=== PATIENT | male | born 1950 | race Caucasian/White ===

== ENCOUNTER 2018-01-26 11:34 | Emergency (ER) | payer MEDICARE, BC ==
[2018-01-26 11:46] VITALS: RESP 18
[2018-01-26] MEDS ORDERED: valACYclovir 500 MG TAB PO STA (12:21)
[2018-01-26] MEDS ORDERED: DEXAMETHASONE 4 MG TAB PO STA (12:21)
--- NOTE | 2018-01-26 12:26 | ED ---
General Adult HPI - General Chief complaint: Neuro Symptoms/Deficit Stated complaint: rt side facial droop, sinus Source: patient, RN notes reviewed, old records reviewed Mode of arrival: wheelchair Limitations: no limitations - History of Present Illness Initial comments: This is a 67-year-old male to the ER for evaluation. This male presents for evaluation regards to facial droop. Patient has history of high blood pressure. No history of stroke. No history of weakness otherwise, no leg or arm weakness. Patient does have right-sided facial numbness and inability to move or paralysis for 3 days now. Patient has no other change in symptoms - Related Data Home Medications Medication Instructions Recorded Confirmed Aspirin 81 mg PO DAILY 01/26/18 01/26/18 Folic Acid 1 mg PO DAILY 01/26/18 01/26/18 Montelukast [Singulair] 10 mg PO DAILY 01/26/18 01/26/18 Zoloft (Unknown Dose) 1 tab PO DAILY 01/26/18 01/26/18 metFORMIN HCL 1,000 mg PO BID 01/26/18 01/26/18 Previous Rx's Medication Instructions Recorded predniSONE 80 mg PO DAILY #28 tab 01/26/18 valACYclovir HCL [Valtrex] 1,000 mg PO Q12HR #14 tab 01/26/18 Allergies Allergy/AdvReac Type Severity Reaction Status Date / Time No Known Allergies Allergy Verified 01/26/18 12:26 Review of Systems ROS Statement: Those systems with pertinent positive or pertinent negative responses have been documented in the HPI. ROS Other: All systems not noted in ROS Statement are negative. Past Medical History Past Medical History: Diabetes Mellitus Additional Past Medical History / Comment(s): serocytosis History of Any Multi-Drug Resistant Organisms: None Reported Past Surgical History: Cholecystectomy, Joint Replacement Additional Past Surgical History / Comment(s): sinus surgery, hemrrhoid repair Past Psychological History: No Psychological Hx Reported Smoking Status: Former smoker Past Alcohol Use History: None Reported Past Drug Use History: None Reported General Exam - General Exam Comments Initial Comments: R side facial droop, unable to close R eye, unable to raise R eyebrow Limitations: no limitations General appearance: alert, in no apparent distress Head exam: Present: atraumatic, normocephalic, normal inspection Eye exam: Present: normal appearance, PERRL, EOMI. Absent: scleral icterus, conjunctival injection, periorbital swelling ENT exam: Present: normal exam, mucous membranes moist Neck exam: Present: normal inspection. Absent: tenderness, meningismus, lymphadenopathy Respiratory exam: Present: normal lung sounds bilaterally. Absent: respiratory distress, wheezes, rales, rhonchi, stridor Cardiovascular Exam: Present: regular rate, normal rhythm, normal heart sounds. Absent: systolic murmur, diastolic murmur, rubs, gallop, clicks GI/Abdominal exam: Present: soft, normal bowel sounds. Absent: distended, tenderness, guarding, rebound, rigid Extremities exam: Present: normal inspection, full ROM, normal capillary refill. Absent: tenderness, pedal edema, joint swelling, calf tenderness Back exam: Present: normal inspection Neurological exam: Present: alert, oriented X3, CN II-XII intact Psychiatric exam: Present: normal affect, normal mood Skin exam: Present: warm, dry, intact, normal color. Absent: rash Course Vital Signs 01/26/18 11:40 Temperature 97.9 F Pulse Rate 77 Respiratory 18 Rate Blood Pressure 150/66 O2 Sat by Pulse 100 Oximetry - Reevaluation(s) Reevaluation #1: 01/26/18 12:37 Patient is discussed at length regarding Merida's palsy. Patient aware, will follow-up with family doctor this week Medical Decision Making - Medical Decision Making 67 male the ER for evaluation of right-sided facial droop, 3 days in duration. 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 Patient will be started on appropriate treatment steroids and antivirals and discharged home Disposition Clinical Impression: Merida's palsy Disposition: HOME SELF-CARE Condition: Good Instructions: Merida Palsy (ED) Prescriptions: predniSONE 80 mg PO DAILY #28 tab valACYclovir HCL [Valtrex] 1,000 mg PO Q12HR #14 tab Referrals: Arsalan Pride MD [Primary Care Provider] - 1-2 days
[2018-01-26 13:00] VITALS: BP 143/69; PULSE 80; TEMP 98.1
== END 2018-01-26 12:59 | disposition home or self-care (01) ==
LOC: EC 11:34
DX: G51.0 Bell's palsy (principal); E11.9 Type 2 diabetes mellitus without complications; D58.0 Hereditary spherocytosis; Z87.891 Personal history of nicotine dependence; Z79.82 Long term (current) use of aspirin; Z79.84 Long term (current) use of oral hypoglycemic drugs; Z79.899 Other long term (current) drug therapy
CPT/HCPCS: 99284; J8540

== ENCOUNTER 2018-08-27 10:24 | Day surgery (SDC) | payer MEDICARE, BC ==
[2018-08-24 08:39] VITALS: BMI 32.1
[~2018-08-27 10:24] MED LIST: LACTATED RINGERS 1,000 ML IV SCH
[2018-08-27 10:45] VITALS: TEMP 98.3
[2018-08-27] MEDS ORDERED: LIDOCAINE 1% 20 ML VIAL (10MG/ML) FOR IV START INTRADERMA ONE (10:59)
[2018-08-27 11:00] LABS: Glucose,Whole Blood 96 mg/dL (75-99)
[2018-08-27] MEDS ORDERED: fentaNYL (PF) 50 MCG/ML 2 ML AMP ONE (11:50)
[2018-08-27] MEDS ORDERED: PROPOFOL 10 MG/ML 20 ML VIAL IV ONE (11:50)
[2018-08-27] MEDS ORDERED: LIDOCAINE 1% INJ 10MG/ML (20 ML MDV) ONE (11:50)
[2018-08-27 12:32] VITALS: RESP 18
--- NOTE | 2018-08-27 12:39 | P.PCN ---
Date of Procedure: 08/27/18 Procedure(s) Performed: Procedures: 1. Esophagogastroduodenoscopy and biopsy. 2. Colonoscopy and biopsy. Preoperative diagnosis: Nausea, early satiety and weight loss and history of diarrhea and polyps. Postoperative diagnosis: 1. 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 2. Mild gastritis. 3. Normal colon. 4. Biopsies obtained from the duodenum, antrum, esophagus both proximal and distal to the GE junction and right colon. Preparation: HalfLytely prep. Sedation: Was provided by anesthesia. Brief clinical history: The patient is a 67-year-old male who is scheduled for this evaluation for the above reasons. The patient had multiple colonoscopies in the past because of history of polyps. Last was around 5 years ago. For the last couple months, he has been having diarrhea and urgent bowel movements in addition to nausea and early satiety and he may have lost 10-15 pounds. No bleeding. Procedure: With the patient on his left lateral decubitus position and after informed consent and adequate sedation, I passed the Olympus-GIF 160 video upper endoscope through the cricopharyngeus down the esophagus. GE junction was around 34 cm from the incisors and the tubular esophagus continued for another 4 cm then there was a sliding hiatal hernia measuring 2-3 cm. The esophagus proximal and distal to the GE junction showed no erosions, ulcers, tumors or strictures. Then the endoscope was passed to the rest of the stomach which was insufflated with air and inspected in detail including the retroflex view in the cardia. There was some mottling and erythema in the antrum but no ulcers or erosions. Pyloric channel, duodenal bulb, post bulbar area and descending duodenum appeared healthy. I obtained biopsies from the duodenum, antrum, esophagus distal and proximal to the GE junction then the endoscope was withdrawn and I proceeded with the colonoscopy. Perianal area did not show any fissures or fistulas. There was some degree of rectal prolapse. There were no masses felt on digital rectal examination. The Olympus CFQ Q160L video colonoscope was then inserted in the rectum in the usual fashion and advanced to the cecum. The mucosa appeared healthy. There were no significant polyps or any obvious diverticular disease. I obtained biopsies from the right colon then the endoscope was withdrawn. The patient tolerated the procedure well. Plan: The patient was reassured. Will await biopsy results and make further plans. For his colon cancer screening, I recommended repeat colonoscopy in 5 years. He will follow up with you as planned.
[2018-08-27 12:46] VITALS: BP 127/71; PULSE 78
== END 2018-08-27 13:02 | disposition home or self-care (01) ==
LOC: ORWHC2ENDO 10:24
DX: K29.50 Unspecified chronic gastritis without bleeding (principal); K44.9 Diaphragmatic hernia without obstruction or gangrene; K22.70 Barrett's esophagus without dysplasia; K20.9 Esophagitis, unspecified; R19.7 Diarrhea, unspecified; Z86.010 Personal history of colon polyps; E11.9 Type 2 diabetes mellitus without complications; F32.9 Major depressive disorder, single episode, unspecified; G47.33 Obstructive sleep apnea (adult) (pediatric); Z99.89 Dependence on other enabling machines and devices; Z79.4 Long term (current) use of insulin; Z79.899 Other long term (current) drug therapy
CPT/HCPCS: 88305; 45380; 43239; J2001; J3010; J2704

== ENCOUNTER 2019-11-30 09:51 | Emergency (ER) | payer MEDICARE ==
[2019-11-30 10:09] VITALS: TEMP 97.9
[2019-11-30 10:20] LABS: Glucose,Whole Blood 71 mg/dL (75-99)
--- NOTE | 2019-11-30 10:27 | ED ---
Extremity Problem HPI - General Source: patient, RN notes reviewed, old records reviewed Mode of arrival: ambulatory Limitations: no limitations <Tessy Loving - Last Filed: 11/30/19 14:00> <Yahir Winslow - Last Filed: 11/30/19 14:12> - General Chief complaint: Extremity Problem,Nontraumatic Stated complaint: Left leg pain Time Seen by Provider: 11/30/19 10:15 - History of Present Illness Initial comments: 60-year-old male presents today for evaluation for left lower extremity pain. Patient reports she's noticed some redness and swelling near his medial left knee, and reports some pain radiating down the tibia into the great toe. Patient reports that he has had no history of blood clots. Does have a history of spherocytosis. He states that he is a diabetic as well. Patient reports that after taking his medications today and upon driving to the emergency department had an episode of cold sweats, and was slightly out of that but now he feels well. Denies any chest pain or shortness of breath or headache. He does state that he believes that his blood sugar may have dropped. Upon arrival patient's blood glucose is 70. Was given apple juice. Patient states that he does have an ulceration on his left great toe. He states that occasionally will open and bleed and history feet. Does have a history of neuropathy as well. (Tessy Loving) - Related Data Home Medications Medication Instructions Recorded Confirmed Aspirin 81 mg PO DAILY 01/26/18 08/27/18 Folic Acid 1 mg PO DAILY 01/26/18 08/27/18 Montelukast [Singulair] 10 mg PO DAILY 01/26/18 08/27/18 metFORMIN HCL 1,000 mg PO BID 01/26/18 08/27/18 Exenatide Microspheres [Bydureon 2 mg SQ Q7D 08/24/18 08/27/18 Pen] Insulin Glargine [Lantus] 26 unit SQ BID 08/24/18 08/27/18 Sertraline [Zoloft] 50 mg PO DAILY 08/24/18 08/27/18 Previous Rx's Medication Instructions Recorded Cephalexin [Keflex] 500 mg PO Q6H #40 cap 11/30/19 Sulfamethox-Tmp 800-160Mg [Bactrim 1 tab PO Q12HR #40 tab 11/30/19 DS 800-160 mg] Allergies Allergy/AdvReac Type Severity Reaction Status Date / Time No Known Allergies Allergy Verified 08/27/18 10:35 Review of Systems ROS Other: All systems not noted in ROS Statement are negative. <Tessy Loving - Last Filed: 11/30/19 14:00> ROS Other: All systems not noted in ROS Statement are negative. <Yahir Winslow Bryan - Last Filed: 11/30/19 14:12> ROS Statement: Those systems with pertinent positive or pertinent negative responses have been documented in the HPI. Past Medical History Past Medical History: Diabetes Mellitus Additional Past Medical History / Comment(s): spherocytosis History of Any Multi-Drug Resistant Organisms: None Reported Past Surgical History: Cholecystectomy, Joint Replacement Additional Past Surgical History / Comment(s): sinus surgery, hemrrhoid repair; Efrain. knees replaced; colonoscopy Past Anesthesia/Blood Transfusion Reactions: No Reported Reaction Past Psychological History: Depression Smoking Status: Former smoker Past Alcohol Use History: None Reported Past Drug Use History: None Reported - Past Family History Mother Family Medical History: No Reported History <Tessy Loving - Last Filed: 11/30/19 14:00> General Exam Limitations: no limitations General appearance: alert, in no apparent distress Head exam: Present: atraumatic, normocephalic, normal inspection Eye exam: Present: normal appearance, PERRL, EOMI. Absent: scleral icterus, conjunctival injection, periorbital swelling ENT exam: Present: normal exam, mucous membranes moist Neck exam: Present: normal inspection. Absent: tenderness, meningismus, lymphadenopathy Respiratory exam: Present: normal lung sounds bilaterally. Absent: respiratory distress, wheezes, rales, rhonchi, stridor Cardiovascular Exam: Present: regular rate, normal rhythm, normal heart sounds. Absent: systolic murmur, diastolic murmur, rubs, gallop, clicks GI/Abdominal exam: Present: soft, normal bowel sounds. Absent: distended, tenderness, guarding, rebound, rigid Extremities exam: Present: normal inspection, full ROM, normal capillary refill. Absent: tenderness, pedal edema, joint swelling, calf tenderness Back exam: Present: normal inspection Neurological exam: Present: alert, oriented X3, CN II-XII intact Psychiatric exam: Present: normal affect, normal mood Skin exam: Present: warm, dry, intact, normal color. Absent: rash <MiguelinaTessy nguyen - Last Filed: 11/30/19 14:00> - General Exam Comments Initial Comments: 60-year-old male. Alert and or neck. No distress. (Tessy Loving) Course Vital Signs 11/30/19 11/30/19 10:06 12:26 Temperature 97.9 F Pulse Rate 90 88 Respiratory 20 16 Rate Blood Pressure 124/66 133/64 O2 Sat by Pulse 97 98 Oximetry Medical Decision Making - Lab Data Result diagrams: 11/30/19 10:35 11/30/19 10:35 - Radiology Data Radiology results: report reviewed <FabienneTessy - Last Filed: 11/30/19 14:00> - Lab Data Result diagrams: 11/30/19 10:35 11/30/19 10:35 <Yahir Winslow - Last Filed: 11/30/19 14:12> - Medical Decision Making 60-year-old male presenting with swelling and erythema on the medial aspect of his left knee. There is no pain with range of motion. He is afebrile and well- appearing. Low suspicion for intra-articular infection. Ultrasound is performed which is negative for DVT. I suspect this is related to superficial cellulitis. He has an appointment with his primary care physician in 2 days. He is prescribed Keflex and Bactrim and will present with any worsening pain or swelling, development of dyspnea or chest pain, development of fever. ([facility] - Lab Data Lab Results 11/30/19 11/30/19 11/30/19 Range/Units 10:16 10:35 10:35 WBC 13.7 H (3.8-10.6) k/uL RBC 4.56 (4.30-5.90) m/uL Hgb 13.3 (13.0-17.5) gm/dL Hct 38.0 L (39.0-53.0) % MCV 83.4 (80.0-100.0) fL MCH 29.1 (25.0-35.0) pg MCHC 34.9 (31.0-37.0) g/dL RDW 19.2 H (11.5-15.5) % Plt Count 139 L (150-450) k/uL Neutrophils % 80 % Lymphocytes % 10 % Monocytes % 7 % Eosinophils % 1 % Basophils % 1 % Neutrophils # 11.0 H (1.3-7.7) k/uL Lymphocytes # 1.4 (1.0-4.8) k/uL Monocytes # 0.9 (0-1.0) k/uL Eosinophils # 0.2 (0-0.7) k/uL Basophils # 0.1 (0-0.2) k/uL Manual Slide Review Performed Hyperchromasia Moderate Poikilocytosis Moderate Anisocytosis Slight Microcytosis Slight PT (9.0-12.0) sec INR (<1.2) APTT (22.0-30.0) sec Sodium 140 (137-145) mmol/L Potassium 3.4 L (3.5-5.1) mmol/L Chloride 100 (98-107) mmol/L Carbon Dioxide 31 H (22-30) mmol/L Anion Gap 9 mmol/L BUN 21 H (9-20) mg/dL Creatinine 0.71 (0.66-1.25) mg/dL Est GFR (CKD-EPI)AfAm >90 (>60 ml/min/1.73 sqM) Est GFR (CKD-EPI)NonAf >90 (>60 ml/min/1.73 sqM) Glucose 71 L (74-99) mg/dL POC Glucose (mg/dL) 71 L (75-99) mg/dL POC Glu Business Proposal Rep ID Deedee Childs Calcium 9.6 (8.4-10.2) mg/dL Total Bilirubin 6.0 H (0.2-1.3) mg/dL AST 22 (17-59) U/L ALT 12 (4-49) U/L Alkaline Phosphatase 71 (38-126) U/L Total Protein 7.8 (6.3-8.2) g/dL Albumin 4.8 (3.5-5.0) g/dL 11/30/19 Range/Units 10:35 WBC (3.8-10.6) k/uL RBC (4.30-5.90) m/uL Hgb (13.0-17.5) gm/dL Hct (39.0-53.0) % MCV (80.0-100.0) fL MCH (25.0-35.0) pg MCHC (31.0-37.0) g/dL RDW (11.5-15.5) % Plt Count (150-450) k/uL Neutrophils % % Lymphocytes % % Monocytes % % Eosinophils % % Basophils % % Neutrophils # (1.3-7.7) k/uL Lymphocytes # (1.0-4.8) k/uL Monocytes # (0-1.0) k/uL Eosinophils # (0-0.7) k/uL Basophils # (0-0.2) k/uL Manual Slide Review Hyperchromasia Poikilocytosis Anisocytosis Microcytosis PT 10.2 (9.0-12.0) sec INR 1.0 (<1.2) APTT 23.3 (22.0-30.0) sec Sodium (137-145) mmol/L Potassium (3.5-5.1) mmol/L Chloride (98-107) mmol/L Carbon Dioxide (22-30) mmol/L Anion Gap mmol/L BUN (9-20) mg/dL Creatinine (0.66-1.25) mg/dL Est GFR (CKD-EPI)AfAm (>60 ml/min/1.73 sqM) Est GFR (CKD-EPI)NonAf (>60 ml/min/1.73 sqM) Glucose (74-99) mg/dL POC Glucose (mg/dL) (75-99) mg/dL POC Glu Business Proposal Rep ID Calcium (8.4-10.2) mg/dL Total Bilirubin (0.2-1.3) mg/dL AST (17-59) U/L ALT (4-49) U/L Alkaline Phosphatase (38-126) U/L Total Protein (6.3-8.2) g/dL Albumin (3.5-5.0) g/dL Disposition Is patient prescribed a controlled substance at d/c from ED?: No Time of Disposition: 14:01 <Tessy Loving - Last Filed: 11/30/19 14:00> <Yahir Winslow - Last Filed: 11/30/19 14:12> Clinical Impression: Cellulitis, leg Disposition: HOME SELF-CARE Condition: Good Instructions (If sedation given, give patient instructions): Cellulitis (ED) Additional Instructions: Follow up with your primary care physician. Monitor for any worsening signs of erythema or swelling of the leg. Patient should return to emergency departm ent if alarming signs or symptoms occur. Take antibiotics as prescribed. Prescriptions: Sulfamethox-Tmp 800-160Mg [Bactrim DS 800-160 mg] 1 tab PO Q12HR #40 tab Cephalexin [Keflex] 500 mg PO Q6H #40 cap Referrals: Arsalan Pride MD [Primary Care Provider] - 1-2 days Yann White DPM [STAFF PHYSICIAN] - 1-2 days
[2019-11-30 10:59] LABS: ALT 12 U/L (4-49); AST 22 U/L (17-59); African American GFR (CKD) >90 (>60 ml/min/1.73 sqM); Albumin 4.8 g/dL (3.5-5.0); Alkaline Phosphatase 71 U/L (38-126); Anion Gap 9 mmol/L; Blood Urea Nitrogen 21 mg/dL (9-20); Calcium 9.6 mg/dL (8.4-10.2); Carbon Dioxide 31 mmol/L (22-30); Chloride 100 mmol/L (98-107); Glucose 71 mg/dL (74-99); Non-African American GFR(CKD) >90 (>60 ml/min/1.73 sqM); Potassium 3.4 mmol/L (3.5-5.1); Sodium 140 mmol/L (137-145); Total Protein 7.8 g/dL (6.3-8.2)
[2019-11-30 11:00] LABS: Partial Thromboplastin Time 23.3 sec (22.0-30.0); Prothrombin Time 10.2 sec (9.0-12.0)
--- NOTE | 2019-11-30 11:07 | XR ---
EXAMINATION TYPE: XR tibia fibula LT , 4 VIEWS DATE OF EXAM ORDERED: 11/30/2019 HISTORY: pain, erythema. COMPARISON: None. FINDINGS: There is a left knee arthroplasty in place. Prosthetic elements appear in good position. N o long bone fracture or dislocation is seen. No other bony destructive lesion is seen. IMPRESSION: STATUS POST LEFT KNEE ARTHROPLASTY.
--- NOTE | 2019-11-30 11:08 | XR ---
EXAMINATION TYPE: XR foot complete LT , 3 VIEWS DATE OF EXAM ORDERED: 11/30/2019 HISTORY: pain, erythema. COMPARISON: None. FINDINGS: There are mild hammertoe deformities of the second through fifth digits. There is mild deg enerative change in the left first MTP joint. No fracture or dislocation is seen. There is a small pl wellington calcaneal spur. IMPRESSION: 1. NO ACUTE OSSEOUS LESION. 2. MILD DEGENERATIVE CHANGE.
[2019-11-30 12:02] LABS: Anisocytosis Slight; Basophils # (A) 0.1 k/uL (0-0.2); Basophils % (A) 1 %; Eosinophils # (A) 0.2 k/uL (0-0.7); Eosinophils % (A) 1 %; HGB 13.3 gm/dL (13.0-17.5); Hyperchromasia Moderate; Lymphocytes # (A) 1.4 k/uL (1.0-4.8); Lymphocytes % (A) 10 %; MCH 29.1 pg (25.0-35.0); MCHC 34.9 g/dL (31.0-37.0); MCV 83.4 fL (80.0-100.0); Microcytosis Slight; Monocytes # (A) 0.9 k/uL (0-1.0); Monocytes % (A) 7 %; Neutrophils % (A) 80 %; Poikilocytosis Moderate; RBC 4.56 m/uL (4.30-5.90); RDW 19.2 % (11.5-15.5); WBC 13.7 k/uL (3.8-10.6)
--- NOTE | 2019-11-30 12:22 | US ---
EXAMINATION TYPE: US venous doppler duplex LE LT DATE OF EXAM: 11/30/2019 12:10 PM COMPARISON: NONE CLINICAL HISTORY: swelling redness and pain medial knee SIDE PERFORMED: right TECHNIQUE: The lower extremity deep venous system is examined utilizing real time linear array sonog manasa with graded compression, doppler sonography and color-flow sonography. VESSELS IMAGED: External Iliac Vein (EIV) Common Femoral Vein Deep Femoral Vein Greater Saphenous Vein * Femoral Vein Popliteal Vein Small Saphenous Vein * Proximal Calf Veins Normal sized lymph nodes in groin. Left Leg: Negative for DVT No popliteal fossa lesion is seen. IMPRESSION: THIS EXAMINATION IS NEGATIVE FOR DVT WITHIN THE LEFT LEG.
[2019-11-30 12:28] VITALS: RESP 16
[2019-11-30 13:05] LABS: Platelet Count 139 k/uL (150-450)
[2019-11-30] MEDS ORDERED: CEPHALEXIN 500MG STARTER PACK 4 CAP BTL PO STA (14:03)
[2019-11-30 14:16] VITALS: BP 124/64; PULSE 68
== END 2019-11-30 14:10 | disposition home or self-care (01) ==
LOC: EC 09:51
DX: L03.116 Cellulitis of left lower limb (principal); L97.529 Non-pressure chronic ulcer of other part of left foot with unspecified severity; E11.621 Type 2 diabetes mellitus with foot ulcer; E11.40 Type 2 diabetes mellitus with diabetic neuropathy, unspecified; F32.9 Major depressive disorder, single episode, unspecified; Z87.891 Personal history of nicotine dependence; Z79.4 Long term (current) use of insulin; Z79.82 Long term (current) use of aspirin; Z79.899 Other long term (current) drug therapy; Z96.653 Presence of artificial knee joint, bilateral
CPT/HCPCS: 36415; 80053; 85025; 85610; 85730; 99284

== ENCOUNTER → 2020-10-05 | Outpatient (CLI) | payer MEDICARE ==
--- NOTE | 2020-10-05 10:07 | CT ---
EXAMINATION TYPE: CT sinus wo con DATE OF EXAM: 10/05/2020 COMPARISON: 03/04/2016 HISTORY: 69-year-old male Chronic sinusitis CT DLP: 578 mGycm Automated exposure control for dose reduction was used. TECHNIQUE: Noncontrast axial views of the paranasal sinuses were obtained. Coronal reconstructions pe rformed. FINDINGS: PARANASAL SINUSES: Continued moderate to severe mucosal thickening throughout the maxillary, ethmoid, and frontal sinuse s. Moderate mucosal thickening right sphenoid sinus and mild left sphenoid sinus have increased in the i nterval There is no air-fluid level. 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 There is no destruction of the osseous stein of the paranasal sinuses. THE NASAL CAVITY: The osteomeatal complexes are widely patent with presence of bilateral medial maxillary antrectomies. The nasal septum is not deviated. The imaged brain shows mild to moderate generalized atrophy. The orbits are normal in appearance. There is trace layering fluid in the inferior most left mastoid air cells. Middle ear cavities are we ll pneumatized. Reformatted images confirm above findings. IMPRESSION: 1. Continued moderate to severe chronic pansinusitis. Mucosal thickening has worsened in the sphenoid sinuses as compared to 2016 and there is now reactive shantal-osteogenesis involving both maxillary sinu s and to a lesser degree, the sphenoid sinus stein. Status post medial maxillary antrectomies. 2. Trace fluid within the inferior left mastoid air cells. Correlate for any mastoid pain to exclude mastoiditis.
== END | disposition home or self-care (01) ==
LOC: RADCTMAIN 09:14
PROVIDERS: ATTEND Otolaryngology
DX: J32.4 Chronic pansinusitis (principal); Z98.890 Other specified postprocedural states
CPT/HCPCS: 70486

== ENCOUNTER 2020-11-19 08:13 | Day surgery (SDC) | payer MEDICARE ==
[2020-11-17 13:19] VITALS: BMI 34.8
[~2020-11-19 08:13] MED LIST changes: +DEXAMETHASONE SOD PHOSPHATE 4 MG/ML 1 ML VIAL IV PRN; +FAMOTIDINE 20 MG/2 ML VIAL IV PRN; +HYDROmorphone 0.5 MG/0.5 ML SYRINGE IVP PRN; +LIDOCAINE 1% (10MG/ML) FOR IV START INTRADERMA PRN; +ONDANSETRON 4 MG/2 ML VIAL IVP PRN; +OXYMETAZOLINE 0.05% NASL SPRAY 1 SPRAY BOTTLE EA NOSTRIL PRN; +Pre Op ABX Message 1 EACH MISC MISCELLANE ONE
[2020-11-19 09:05] LABS: Glucose,Whole Blood 90 mg/dL (75-99)
[2020-11-19 09:08] VITALS: RESP 16
[2020-11-19] MEDS ORDERED: HYDROCORTISONE SUCCINATE 100 MG/2 ML VIAL IV ONE (09:23)
[2020-11-19] MEDS ORDERED: LIDOCAINE 1% INJ 10MG/ML (20 ML MDV) ONE (10:01)
[2020-11-19] MEDS ORDERED: ceFAZolin 1,000 MG VIAL ONE (10:01)
[2020-11-19] MEDS ORDERED: DEXAMETHASONE SOD PHOSPHATE 10 MG/ML 1 ML VIAL ONE (10:01)
[2020-11-19] MEDS ORDERED: MIDAZOLAM 2 MG/2 ML VIAL ONE (10:01)
[2020-11-19] MEDS ORDERED: SUCCINYLCHOLINE CHLORIDE VIAL 200 MG/10 ML VIAL IV ONE (10:01)
[2020-11-19] MEDS ORDERED: PROPOFOL 10 MG/ML 20 ML VIAL IV ONE (10:01)
[2020-11-19] MEDS ORDERED: fentaNYL (PF) 50 MCG/ML 2 ML AMP ONE (10:01)
[2020-11-19] MEDS ORDERED: SODIUM CHLORIDE 0.9% 100 ML with ceFAZolin 2,000 MG IV ONE ×2 (10:25)
[2020-11-19] MEDS ORDERED: CIPROFLOX/FLUOCIN OTIC 0.25ML DROPERETTE OT ONE (10:43)
[2020-11-19] MEDS ORDERED: LIDOCAINE 1%-EPI 1:100,000 20 ML VIAL SQ ONE ×2 (10:44)
[2020-11-19] MEDS ORDERED: EPINEPHrine 1 MG/ML (MDV) 30 ML VIAL TOPICAL ONE (10:45)
[2020-11-19] MEDS ORDERED: EPINEPHrine 1 MG/ML 1 ML AMP IRRIGATION ONE (10:45)
[2020-11-19] MEDS ORDERED: FLUORESCEIN STRIPS 1 MG STRIP MISCELLANE ONE (10:45)
[2020-11-19 11:38] VITALS: TEMP 97.4
[2020-11-19 11:42] LABS: Glucose,Whole Blood 187 mg/dL (75-99)
[2020-11-19] MEDS ORDERED: amLODIPine 5 MG TAB PO PRN (11:45)
--- NOTE | 2020-11-19 11:45 | P.OP ---
Date of Procedure: 11/19/20 Preoperative Diagnosis: Chronic pansinusitis with sinonasal polyposis Left chronic serous otitis media Left-sided conductive hearing loss Left eustachian tube dysfunction Postoperative Diagnosis: Same Procedure(s) Performed: Bilateral functional endoscopic sinus surgery with polypectomy (all sinuses) and placement of contour and propel implants Left direct microscopic tympanostomy and tube placement utilizing an ultraseal tube Left eustachian tuboplasty with resection of the posterior aspect of the left inferior turbinate Implants: Bilateral propel and contour and left tube placement Anesthesia: GETA Surgeon: Beni Campbell Estimated Blood Loss (ml): 40 Pathology: other (Sinonasal) Condition: stable Disposition: PACU Indications for Procedure: This patient presented to the office with persistent sinonasal symptoms. The patient has had a lifetime of left-sided eustachian tube dysfunction and he's had on and off again ear pain pressure fullness and has developed a left middle ear effusion. He has failed medical therapy and is interested and tube placement I've also discussed a balloon eustachian tuboplasty which she would be a great candidate and he elected to proceed forward with that. He also has constant sinus symptoms and CAT scan demonstrates chronic pansinusitis with sinonasal polyposis surgical removal of the polyps is recommended. He has failed medical therapy and wished to proceed forward. All sinuses were infected all sinuses had polypoid disease. Operative Findings: Patient had a left middle ear effusion a very obstructed and swollen left eustachian tube and widespread sinonasal disease with sinonasal polyposis throughout all sinuses. Description of Procedure: This patient was taken to the operative room placed in the supine position. A general inhalation anesthetic was administered to the patient by mask and subsequently intubated with a cuffed endotracheal tube by the department of anesthesia with a functioning IV line in place the patient was monitored throughout the entire case by the department of anesthesia. Visualized with a high-powered microscope and cerumen and epithelial debris was removed from the external auditory canal. Tympanostomy incision was made inferiorly fluid was suctioned and a ultraseal tube was placed. Attention was then paid intranasally with use of the 0 Trevizo heather scope and with use of the acclarant eustachian balloon a left eustachian tube balloon tuboplasty was performed utilizing insufflation in the standard fashion. After the eustachian tube was insufflated and ballooned and a left tube was placed attention was then paid to the nose where we anesthetized the nose utilizing a sphenopalatine block and turbinate inferior turbinates lateral nasal wall with lidocaine 1% with epinephrine 1 100,000. 10 minutes were allowed wait for full vasoconstrictive effects to take place. The endonasal procedure was performed with a 0 and 30 Trevizo heather endoscope. We entered the nose and underneath the inferior turbinate we performed a infraturbinal maxillary antrostomy with use of a [place] and microdebrider. We entered the maxillary sinuses inferiorly and removed polyp material. We then opened the maxillary sinuses above the inferior turbinates and a wide opening was obtained and polyp material was removed. We continued our dissection through the ethmoid air cells and removed a large amount of polyp material and then entered the sphenoid sinus below the superior turbinate. The sphenoid sinus was opened polyp material was removed we did this with the microdebrider straight brayden up-biting Mya. Large amount of polyp material was removed from both sphenoid sinuses both maxillary sinuses and both total ethmoids. All ethmoid septations were removed. We then entered the nasal frontal duct and the nasal frontal duct was opened with balloon assistance we entered the frontal sinuses with a 0 Trevizo heather scope and removed polyp material from the frontal sinuses bilaterally and irrigated. After all sinuses were opened and all polyp material was removed we inserted propel and contour bilaterally. After propel and contour was was inserted bilaterally we inserted xerogel bilaterally. To summarize all sinuses were open all sinuses had polyps and they were removed we placed a tube in the left ear and ballooned open the left eustachian tube. The frontal sinuses bilaterally ethmoid sinuses bilaterally maxillary sinuses bilaterally and sphenoid sinuses bilaterally were opened and diseased tissue were removed from all sinuses. Again the left eustachian tube was ballooned open in the standard fashion and a left tube was placed. The patient tolerated this procedure well and follow-up will be in the office next week. Patient is to call me if any problems should arise. No splints were placed.
[2020-11-19] MEDS ORDERED: SODIUM CHLORIDE 0.9% 1,000 ML IV ONE ×2 (12:00)
[2020-11-19 13:03] VITALS: BP 115/62; PULSE 84
[2020-11-19 13:08] LABS: Glucose,Whole Blood 209 mg/dL (75-99)
== END 2020-11-19 13:32 | disposition home or self-care (01) ==
LOC: OR 08:13
PROVIDERS: ATTEND Otolaryngology
DX: J32.4 Chronic pansinusitis (principal); H65.22 Chronic serous otitis media, left ear; H90.2 Conductive hearing loss, unspecified; H69.92 Unspecified Eustachian tube disorder, left ear; Z87.891 Personal history of nicotine dependence; H93.19 Tinnitus, unspecified ear; J61 Pneumoconiosis due to asbestos and other mineral fibers; I10 Essential (primary) hypertension; G47.33 Obstructive sleep apnea (adult) (pediatric); K21.9 Gastro-esophageal reflux disease without esophagitis; J45.909 Unspecified asthma, uncomplicated; E11.9 Type 2 diabetes mellitus without complications; E66.9 Obesity, unspecified; Z68.35 Body mass index [BMI] 35.0-35.9, adult; Z90.49 Acquired absence of other specified parts of digestive tract; Z96.653 Presence of artificial knee joint, bilateral; Z98.890 Other specified postprocedural states; Z82.61 Family history of arthritis; Z80.1 Family history of malignant neoplasm of trachea, bronchus and lung; Z80.3 Family history of malignant neoplasm of breast; Z83.79 Family history of other diseases of the digestive system; Z83.52 Family history of ear disorders; Z79.1 Long term (current) use of non-steroidal anti-inflammatories (NSAID); Z79.82 Long term (current) use of aspirin; Z79.4 Long term (current) use of insulin; Z79.891 Long term (current) use of opiate analgesic; Z79.52 Long term (current) use of systemic steroids; Z79.899 Other long term (current) drug therapy
CPT/HCPCS: 69436; 31267; 31259; 31253; C2625 ×2; C1726; J2250; J0171; J0330; J1100; J1720; J2405; J0690; J2001; J3010; J2704; 88305

== ENCOUNTER → 2021-04-07 | Outpatient (CLI) | payer MEDICARE ==
--- NOTE | 2021-04-07 13:14 | FL ---
EXAMINATION TYPE: FL barium swallow DATE OF EXAM: 04/07/2021 CLINICAL HISTORY: History of Melchor's esophagus and hiatal hernia with difficulty swallowing on occa esequiel. History of chronic reflux on long-term reflux medication. TECHNIQUE: A double contrast esophagram is performed utilizing air and barium. A total of 38 second s of fluoroscopic time was utilized during procedure and 60 images saved to PACS COMPARISON: Chest CT July 30, 2015 FINDINGS: The esophagus shows satisfactory motility and emptying into the stomach. No diverticulum. S mall sliding type hiatal hernia. No significant stricture. Mild mucosal abnormalities along the mid t o distal esophagus without focal significant ulceration. No significant gastroesophageal reflux was s een during real time performance of this study. IMPRESSION: Small sliding-type hiatal hernia. No significant stricture. Motility within normal limit s.
== END | disposition home or self-care (01) ==
LOC: RADUSWWP 09:55
PROVIDERS: ATTEND Surgery Plastic and Reconstructive Surgery
DX: K44.9 Diaphragmatic hernia without obstruction or gangrene (principal)
CPT/HCPCS: 74220

== ENCOUNTER 2021-04-22 07:44 | Day surgery (SDC) | payer MEDICARE ==
[2021-04-19 15:34] VITALS: BMI 32.8
--- NOTE | 2021-04-22 07:40 | P.GSHP ---
History of Present Illness H&P Date: 04/22/21 CHIEF COMPLAINT: GERD HISTORY OF PRESENT ILLNESS: The patient is a 70-year-old male who presents reports gastroesophageal reflux disease. Upper endoscopy was offered for further evaluation and management. PAST MEDICAL HISTORY: Please see list. PAST SURGICAL HISTORY: Please see list. MEDICATIONS: Please see list. ALLERGIES: Please see list. SOCIAL HISTORY: No illicit drug use FAMILY HISTORY: No reports of Crohn disease or ulcerative colitis. REVIEW OF ORGAN SYSTEMS: CONSTITUTIONAL: No reports of fevers or chills. GI: Denies any blood in stools or constipation. PHYSICAL EXAM: VITAL SIGNS: Stable GENERAL: Well-developed and pleasant in no acute distress. HEENT: No scleral icterus. Extraocular movements grossly intact. Moist buccal mucosa. NECK: Supple without lymphadenopathy. CHEST: Unlabored respirations. Equal bilateral excursions. CARDIOVASCULAR: Regular rate and rhythm. Distal 2+ pulses. ABDOMEN: Soft, nondistended. MUSCULOSKELETAL: No clubbing, cyanosis, or edema. ASSESSMENT: 1. Gastroesophageal reflux disease PLAN: 1. Recommend proceeding with an upper endoscopy Past Medical History Past Medical History: Asthma, Blood Disorder, Diabetes Mellitus, GERD/Reflux, Hearing Disorder / Deafness, Hypertension, Sleep Apnea/CPAP/BIPAP Additional Past Medical History / Comment(s): spherocytosis., uses CPAP, neuropathy feet, asbestosis, hx colon polyps, constipation. History of Any Multi-Drug Resistant Organisms: None Reported Past Surgical History: Cholecystectomy, Joint Replacement, Tonsillectomy Additional Past Surgical History / Comment(s): sinus surgery, hemorrhoid repair; Efrain. knees replaced; colonoscopy, multiple tubes in both ears Past Anesthesia/Blood Transfusion Reactions: No Reported Reaction Past Psychological History: No Psychological Hx Reported Additional Psychological History / Comment(s): states amitriptyline for neuropathy Smoking Status: Former smoker Past Alcohol Use History: Rare Additional Past Alcohol Use History / Comment(s): Quit smoking 27 years ago; smoked 2 ppd from teens until 40's Past Drug Use History: None Reported - Past Family History Mother Family Medical History: No Reported History Father Family Medical History: Cancer Additional Family Medical History / Comment(s): bone and lung cancer Sister(s) Family Medical History: Cancer Additional Family Medical History / Comment(s): breast cancer Medications and Allergies Home Medications Medication Instructions Recorded Confirmed Type Aspirin 81 mg PO DAILY 01/26/18 04/19/21 History Folic Acid 1 mg PO DAILY 01/26/18 04/19/21 History Montelukast [Singulair] 10 mg PO DAILY 01/26/18 04/19/21 History metFORMIN HCL 1,000 mg PO BID 01/26/18 04/19/21 History Insulin Glargine [Lantus] 35 unit SQ BID 08/24/18 04/19/21 History Sertraline [Zoloft] 100 mg PO DAILY 08/24/18 04/19/21 History Amitriptyline HCl [Elavil] 10 mg PO BID 11/17/20 04/19/21 History Dulaglutide [Trulicity] 0.75 mg SQ TU 11/17/20 04/19/21 History Ramipril [Altace] 10 mg PO DAILY 11/17/20 04/19/21 History amLODIPine [Norvasc] 5 mg PO DAILY #10 tab 11/19/20 04/19/21 Rx Albuterol Inhaler [Ventolin Hfa 2 puff INHALATION DIRECTED PRN 04/19/21 04/19/21 History Inhaler] Hydrochlorothiazide 12.5 mg PO DAILY 04/19/21 04/19/21 History [hydroCHLOROthiazide] Omeprazole 40 mg PO DAILY 04/19/21 04/19/21 History Allergies Allergy/AdvReac Type Severity Reaction Status Date / Time No Known Allergies Allergy Verified 04/19/21 15:14
[~2021-04-22 07:44] MED LIST changes: -DEXAMETHASONE SOD PHOSPHATE 4 MG/ML 1 ML VIAL IV PRN; -FAMOTIDINE 20 MG/2 ML VIAL IV PRN; -HYDROmorphone 0.5 MG/0.5 ML SYRINGE IVP PRN; -LIDOCAINE 1% (10MG/ML) FOR IV START INTRADERMA PRN; -ONDANSETRON 4 MG/2 ML VIAL IVP PRN; -OXYMETAZOLINE 0.05% NASL SPRAY 1 SPRAY BOTTLE EA NOSTRIL PRN; -Pre Op ABX Message 1 EACH MISC MISCELLANE ONE
[2021-04-22 08:07] VITALS: RESP 16; TEMP 97.1
[2021-04-22] MEDS ORDERED: LIDOCAINE 1% (10MG/ML) FOR IV START INTRADERMA ONE (08:13)
[2021-04-22 08:16] LABS: Glucose,Whole Blood 77 mg/dL (75-99)
[2021-04-22] MEDS ORDERED: PROPOFOL 10 MG/ML 20 ML VIAL IV ONE (09:51)
[2021-04-22] MEDS ORDERED: LIDOCAINE 1% INJ 10MG/ML (20 ML MDV) ONE (09:51)
--- NOTE | 2021-04-22 10:08 | P.PCN ---
Date of Procedure: 04/22/21 Description of Procedure: PREOPERATIVE DIAGNOSIS: Gastroesophageal reflux disease. Melchor's esophagus POSTOPERATIVE DIAGNOSIS: Melchor's esophagus Gastritis OPERATION: Esophagogastroduodenoscopy with biopsies along antrum and distal esophagus for Melchor's SURGEON: Kamala Benson MD ANESTHESIA: MAC. INDICATIONS: The patient is a 70-year-old feme who presents with a history of reflux disease. Benefits and risks of the procedure were described. Informed consent was obtained. DESCRIPTION: The patient was brought into the endoscopy suite and laid in the left lateral decubitus position. An Olympus gastroscope was passed along the posterior oropharynx down to the distal esophagus where the squamocolumnar junction was encountered obliterated by Melchor's esophagus at 33 cm on the incisors. The stomach was entered and no bile reflux was found. Additional findings are listed below. Biopsies with cold forceps were obtained of the antrum. The first through third portion of the duodenum was examined and unremarkable. Retroflexion of the scope confirmed Hill grade 3 lower esophageal valve. The squamocolumnar junction demonstrated LA grade D erosive esophagitis. The stomach was desufflated. The patient tolerated the procedure well. FINDINGS: Squamocolumnar junction 33 cm from the incisors. Diaphragmatic hiatus at 40 cm. Hiatal hernia, 7 cm Hill grade 3 lower esophageal valve. LA grade D erosive esophagitis. No active duodenitis. Chronic gastritis RECOMMENDATIONS: Upper endoscopy in 1 years, 2021 Plan - Discharge Summary New Discharge Prescriptions: Continue metFORMIN HCL 1,000 mg PO BID Montelukast [Singulair] 10 mg PO DAILY Folic Acid 1 mg PO DAILY Aspirin 81 mg PO DAILY Insulin Glargine [Lantus] 35 unit SQ BID Sertraline [Zoloft] 100 mg PO DAILY Ramipril [Altace] 10 mg PO DAILY Amitriptyline HCl [Elavil] 10 mg PO BID Dulaglutide [Trulicity] 0.75 mg SQ TU amLODIPine [Norvasc] 5 mg PO DAILY #10 tab Hydrochlorothiazide [hydroCHLOROthiazide] 12.5 mg PO DAILY Omeprazole 40 mg PO DAILY Albuterol Inhaler [Ventolin Hfa Inhaler] 2 puff INHALATION DIRECTED PRN PRN Reason: Shortness Of Breath Discharge Medication List Aspirin 81 mg PO DAILY 01/26/18 [History] Folic Acid 1 mg PO DAILY 01/26/18 [History] Montelukast [Singulair] 10 mg PO DAILY 01/26/18 [History] metFORMIN HCL 1,000 mg PO BID 01/26/18 [History] Insulin Glargine [Lantus] 35 unit SQ BID 08/24/18 [History] Sertraline [Zoloft] 100 mg PO DAILY 08/24/18 [History] Amitriptyline HCl [Elavil] 10 mg PO BID 11/17/20 [History] Dulaglutide [Trulicity] 0.75 mg SQ TU 11/17/20 [History] Ramipril [Altace] 10 mg PO DAILY 11/17/20 [History] amLODIPine [Norvasc] 5 mg PO DAILY #10 tab 11/19/20 [Rx] Albuterol Inhaler [Ventolin Hfa Inhaler] 2 puff INHALATION DIRECTED PRN 04/19/21 [History] Hydrochlorothiazide [hydroCHLOROthiazide] 12.5 mg PO DAILY 04/19/21 [History] Omeprazole 40 mg PO DAILY 04/19/21 [History] Follow up Appointment(s)/Referral(s): Kamala Benson MD [STAFF PHYSICIAN] - 05/11/21 Patient Instructions/Handouts: Melchor Esophagus (DC), Gastritis (DC), Diet for Stomach Ulcers and Gastritis (ED) Discharge Disposition: HOME SELF-CARE
[2021-04-22 10:46] VITALS: BP 108/75; PULSE 74
== END 2021-04-22 11:06 | disposition home or self-care (01) ==
LOC: ORWHC2ENDO 07:44
PROVIDERS: ATTEND Surgery Plastic and Reconstructive Surgery
DX: K29.50 Unspecified chronic gastritis without bleeding (principal); K22.10 Ulcer of esophagus without bleeding; K44.9 Diaphragmatic hernia without obstruction or gangrene; K22.70 Barrett's esophagus without dysplasia; K21.9 Gastro-esophageal reflux disease without esophagitis; J45.909 Unspecified asthma, uncomplicated; E11.9 Type 2 diabetes mellitus without complications; H91.90 Unspecified hearing loss, unspecified ear; I10 Essential (primary) hypertension; G47.33 Obstructive sleep apnea (adult) (pediatric); D58.0 Hereditary spherocytosis; E11.42 Type 2 diabetes mellitus with diabetic polyneuropathy; J61 Pneumoconiosis due to asbestos and other mineral fibers; Z86.010 Personal history of colon polyps; K59.00 Constipation, unspecified; Z90.49 Acquired absence of other specified parts of digestive tract; Z96.653 Presence of artificial knee joint, bilateral; Z90.89 Acquired absence of other organs; Z98.890 Other specified postprocedural states; Z87.891 Personal history of nicotine dependence; Z80.1 Family history of malignant neoplasm of trachea, bronchus and lung; Z80.8 Family history of malignant neoplasm of other organs or systems; Z80.3 Family history of malignant neoplasm of breast; Z79.82 Long term (current) use of aspirin; Z79.4 Long term (current) use of insulin; Z79.899 Other long term (current) drug therapy
CPT/HCPCS: 88305; 88342; 43239; J2001; J2704

== ENCOUNTER → 2021-05-21 | Outpatient (CLI) | payer MEDICARE ==
[2021-05-21 13:35] LABS: Anisocytosis Slight; HCT 35.3 % (39.0-53.0); HGB 12.8 gm/dL (13.0-17.5); Hyperchromasia Slight; MCH 31.2 pg (25.0-35.0); MCHC 36.4 g/dL (31.0-37.0); MCV 85.7 fL (80.0-100.0); Mean Platelet Volume 9.3; Platelet Count 151 k/uL (150-450); Poikilocytosis Moderate; RBC 4.12 m/uL (4.30-5.90); RDW 17.7 % (11.5-15.5); WBC 8.5 k/uL (3.8-10.6)
[2021-05-21 13:44] LABS: ALT 12 U/L (4-49); AST 21 U/L (17-59); African American GFR (CKD) >90 (>60 ml/min/1.73 sqM); Albumin 4.5 g/dL (3.5-5.0); Alkaline Phosphatase 66 U/L (38-126); Anion Gap 6 mmol/L; Blood Urea Nitrogen 18 mg/dL (9-20); Calcium 9.4 mg/dL (8.4-10.2); Carbon Dioxide 33 mmol/L (22-30); Chloride 100 mmol/L (98-107); Glucose 123 mg/dL (74-99); Non-African American GFR(CKD) 79 (>60 ml/min/1.73 sqM); Potassium 4.2 mmol/L (3.5-5.1); Sodium 139 mmol/L (137-145); Total Bilirubin 4.1 mg/dL (0.2-1.3); Total Protein 6.8 g/dL (6.3-8.2)
--- NOTE | 2021-05-21 16:46 | CT ---
EXAMINATION TYPE: CT abdomen pelvis w con DATE OF EXAM: 05/21/2021 COMPARISON: None INDICATION: Diverticulitis of large intestine w/o perforation or abscess. Hx hiatial hernia. Pt stati ng he is having sx soon for hernia, doctor concerned over proximity to aorta. DLP: 1995.50 mGycm, Automated exposure control for dose reduction was used. CONTRAST: 100 mL of Isovue 300. Study performed with Oral Contrast TECHNIQUE: Axial images were obtained from above the diaphragm to the pubic rami in the axial plane a t 5 mm thick sections. Reconstructed images are reviewed on the computer in the coronal plane. FINDINGS: Limited CT sections are obtained the lung bases. The lung bases are clear. Note is made of some min imal reflux into the esophagus. CT ABDOMEN: Liver: Normal Spleen: Splenomegaly is present measuring 17.7 cm craniocaudal. Normal 12.5 cm or less. Pancreas: Normal Adrenal glands: The adrenal glands are normal. Gallbladder: Normal Kidneys: Perinephric stranding is present bilaterally. This can be associated with infection and pyel onephritis. No masses are evident. No hydronephrosis is present. No cysts are present. Delayed dorene ges were obtained through the kidneys, which remain unremarkable. Aorta: Minimal Vascular calcification is within the aorta. Inferior vena cava: Normal. CT PELVIS: Loops of bowel within the abdomen and pelvis are normal. No significant colonic diverticulosis is ev ident. No suspicious changes to suggest acute diverticulitis or diverticular abscess. There are loo ps of bowel which are incompletely distended or lack oral contrast limiting their evaluation. Appendix: Normal as visualized. Urinary bladder: Normal. Genitourinary structures: Prostate is normal. Osseous structures: No suspicious lytic or sclerotic lesions. IMPRESSIONS: 1. No suspicious acute diverticulitis or abscess formation. 2. Some perinephric stranding bilaterally can be associated with pyelonephritis. Correlate with the s ymptoms. 3. Marked splenomegaly. 4. Mild gastroesophageal reflux
== END | disposition home or self-care (01) ==
LOC: RADCTMAIN 12:46
PROVIDERS: ATTEND Surgery Plastic and Reconstructive Surgery
DX: R16.1 Splenomegaly, not elsewhere classified (principal); K21.9 Gastro-esophageal reflux disease without esophagitis
CPT/HCPCS: 80053; 85027; 74177; 36415; 93005; Q9967

== ENCOUNTER → 2021-07-13 | Outpatient (CLI) | payer MEDICARE ==
[2021-07-13 11:01] LABS: African American GFR (CKD) >90 (>60 ml/min/1.73 sqM); Anisocytosis Slight; Basophils % (A) 0 %; Blood Urea Nitrogen 25 mg/dL (9-20); Eosinophils # (A) 0.1 k/uL (0-0.7); Eosinophils % (A) 1 %; HCT 35.4 % (39.0-53.0); HGB 12.8 gm/dL (13.0-17.5); Hyperchromasia Moderate; Lymphocytes # (A) 1.2 k/uL (1.0-4.8); Lymphocytes % (A) 16 %; MCHC 36.2 g/dL (31.0-37.0); MCV 85.6 fL (80.0-100.0); Magnesium 1.8 mg/dL (1.6-2.3); Mean Platelet Volume 9.8; Monocytes # (A) 0.4 k/uL (0-1.0); Monocytes % (A) 6 %; Neutrophils # (A) 5.7 k/uL (1.3-7.7); Neutrophils % (A) 76 %; Non-African American GFR(CKD) 86 (>60 ml/min/1.73 sqM); Platelet Count 141 k/uL (150-450); Poikilocytosis Moderate; Potassium 4.3 mmol/L (3.5-5.1); RBC 4.13 m/uL (4.30-5.90); WBC 7.5 k/uL (3.8-10.6)
[2021-07-13 11:11] LABS: Prothrombin Time 10.7 sec (9.0-12.0)
== END | disposition home or self-care (01) ==
LOC: LABPAT 09:48
PROVIDERS: ATTEND Anesthesiology
DX: Z01.812 Encounter for preprocedural laboratory examination (principal)
CPT/HCPCS: 36415; 82565; 83735; 84132; 84520; 85025; 85610; 85730

== ENCOUNTER 2021-07-16 05:55 | Day surgery (SDC) | payer MEDICARE ==
[2021-07-12 14:26] VITALS: BMI 32.1
[~2021-07-16 05:55] MED LIST changes: +HEPARIN SODIUM,PORCINE/PF 5,000 UNIT/0.5 ML SYRINGE SQ PRN; -LACTATED RINGERS 1,000 ML IV SCH
[2021-07-16] MEDS ORDERED: DEXAMETHASONE SOD PHOSPHATE 4 MG/ML 1 ML VIAL IV ONE (06:17)
[2021-07-16] MEDS ORDERED: LIDOCAINE 1% (10MG/ML) FOR IV START INTRADERMA PRN (06:17)
[2021-07-16] MEDS ORDERED: ONDANSETRON 4 MG/2 ML VIAL IVP ONE (06:17)
[2021-07-16] MEDS ORDERED: MIDAZOLAM 2 MG/2 ML VIAL IV PRN (06:17)
[2021-07-16] MEDS ORDERED: LACTATED RINGERS 1,000 ML IV SCH (06:17)
[2021-07-16 06:39] LABS: Glucose,Whole Blood 76 mg/dL (75-99)
[2021-07-16] MEDS ORDERED: ACETAMINOPHEN TAB 500 MG TAB PO PRN (06:43)
[2021-07-16] MEDS ORDERED: TAMSULOSIN 0.4 MG CAP.ER.24H PO PRN (06:43)
--- NOTE | 2021-07-16 06:50 | P.GSHP ---
History of Present Illness H&P Date: 07/16/21 CHIEF COMPLAINT: Paraesophageal hiatal hernia with gastroesophageal reflux disease. HISTORY OF PRESENT ILLNESS: The patient is a 70-year-old male who presents with paraesophageal hiatal hernia. He has completed an esophageal manometry including upper endoscopy workup. Now he presents for surgical intervention. PAST MEDICAL HISTORY: Please see list. PAST SURGICAL HISTORY: Please see list. MEDICATIONS: Please see list. ALLERGIES: Please see list. SOCIAL HISTORY: No illicit drug use FAMILY HISTORY: No reports of Crohn disease or ulcerative colitis. REVIEW OF ORGAN SYSTEMS: CONSTITUTIONAL: No reports of fevers or chills. HEENT: Denies any trouble with vision, hearing or nosebleeds. No difficulty swallowing. LYMPHATIC: The patient denies any lumps and bumps around the neck. ENDOCRINE: Denies any thyroid disorders. Has diabetes type 2. RESPIRATORY: Denies pneumonia. Has asthma with COPD. CARDIOVASCULAR: Denies any chest pain, palpitations, or recent heart attacks. Has hypertensive heart disease. GASTROINTESTINAL: Denies heart burn, constipation or bright red blood per rectum. History of jaundice. GENITOURINARY: Denies any blood in urine or increased urinary frequency. MUSCULOSKELETAL: Has back pain, stiffness, joint arthritis. NEUROLOGIC: Denies any numbness or tingling along the distal extremities. No seizure disorders or headaches. PSYCHIATRIC: Denies depression or suidical ideation. HEMATOLOGIC: Has hereditary spherocytosis with splenomegaly BREASTS: Denies any breast lumps, pain or nipple discharge. PHYSICAL EXAM: VITAL SIGNS: Stable GENERAL: Well-developed pleasant and in no acute distress. HEENT: No scleral icterus. Extraocular movements grossly intact. Moist buccal mucosa. NECK: Supple without lymphadenopathy. CHEST: Unlabored respirations. Equal bilateral excursions. CARDIOVASCULAR: Regular rate and rhythm. Distal 2+ pulses. ABDOMEN: Soft, nondistended. No peritoneal signs. MUSCULOSKELETAL: No clubbing, cyanosis, or edema. SKIN: Well-perfused. Good skin turgor. MANOMETRY: Shows no evidence of achalasia or scleroderma. ASSESSMENT: 1. Diaphragmatic paraesophageal hiatal hernia with severe gastroesophageal reflux disease. PLAN: 1. Recommend proceeding with a robotic paraesophageal hiatal hernia with possible mesh. 2. Benefits and risks of surgical intervention was discussed including possibility of open technique. 3. Inpatient hospitalization recommended of 2 nights 4. DVT prophylaxis. 5. Antibiotic prophylaxis. 6. He is elevated risk with with insulin dependent diabetes, COPD, and splenomegaly. Past Medical History Past Medical History: Asthma, Blood Disorder, Diabetes Mellitus, GERD/Reflux, Hearing Disorder / Deafness, Hypertension, Sleep Apnea/CPAP/BIPAP Additional Past Medical History / Comment(s): spherocytosis., neuropathy erick feet, asbestosis, hiatal hernia, dry skin, anemia, History of Any Multi-Drug Resistant Organisms: None Reported Past Surgical History: Cholecystectomy, Ear Surgery, Joint Replacement, Tonsillectomy Additional Past Surgical History / Comment(s): sinus surgery x2 , hemorrhoidectomy, colonoscopy, multiple tubes in both ears, erick knee replacement, erick knee arthroscopy Past Anesthesia/Blood Transfusion Reactions: No Reported Reaction Smoking Status: Former smoker - Past Family History Mother Family Medical History: No Reported History Father Family Medical History: Cancer Additional Family Medical History / Comment(s): bone and lung cancer Sister(s) Family Medical History: Cancer Additional Family Medical History / Comment(s): breast cancer Medications and Allergies Home Medications Medication Instructions Recorded Confirmed Type Folic Acid 1 mg PO DAILY 01/26/18 07/12/21 History Montelukast [Singulair] 10 mg PO DAILY 01/26/18 07/12/21 History metFORMIN HCL [Glucophage] 1,000 mg PO BID 01/26/18 07/12/21 History Insulin Glargine [Lantus Vial] 35 unit SQ BID 08/24/18 07/12/21 History Sertraline [Zoloft] 100 mg PO DAILY 08/24/18 07/12/21 History Amitriptyline HCl [Elavil] 10 mg PO BID 11/17/20 07/12/21 History Ramipril [Altace] 10 mg PO DAILY 11/17/20 07/12/21 History amLODIPine [Norvasc] 5 mg PO DAILY #10 tab 11/19/20 07/12/21 Rx Albuterol Inhaler [Ventolin Hfa 2 puff INHALATION DIRECTED PRN 04/19/21 0 07/12/21 History Inhaler] Hydrochlorothiazide 12.5 mg PO DAILY 04/19/21 07/12/21 History [hydroCHLOROthiazide] Omeprazole 40 mg PO DAILY 04/19/21 07/12/21 History Dulaglutide [Trulicity] 3 mg SQ TU 07/12/21 07/12/21 History Allergies Allergy/AdvReac Type Severity Reaction Status Date / Time No Known Allergies Allergy Verified 07/12/21 14:14
[2021-07-16] MEDS ORDERED: PANTOPRAZOLE 40 MG/10 ML VIAL IVP ONE (06:59)
[2021-07-16] MEDS ORDERED: HYDROmorphone 0.5 MG/0.5 ML SYRINGE IVP PRN (07:00)
[2021-07-16] MEDS ORDERED: PANTOPRAZOLE 40 MG/10 ML VIAL IVP PRN (07:00)
[2021-07-16] MEDS ORDERED: CHLORHEXIDINE GLUCONATE 15 ML CUP MUCOUS MEM PRN (07:00)
[2021-07-16] MEDS ORDERED: ROCURONIUM 10 MG/ML (5 ML VIAL) IV ONE (07:24)
[2021-07-16] MEDS ORDERED: fentaNYL (PF) 50 MCG/ML 2 ML AMP ONE (07:24)
[2021-07-16] MEDS ORDERED: SUCCINYLCHOLINE CHLORIDE 100 MG/5 ML SYR IV ONE (07:24)
[2021-07-16] MEDS ORDERED: LIDOCAINE 1% INJ 10MG/ML (20 ML MDV) ONE (07:24)
[2021-07-16] MEDS ORDERED: PHENYLEPHRINE-0.9% NACL SYG 1,000 MCG/10 ML SYRINGE ONE (07:24)
[2021-07-16] MEDS ORDERED: ALBUTEROL HFA INHALER INHALATION ONE (07:24)
[2021-07-16] MEDS ORDERED: NEOSTIGMINE 1 MG/ML 10 ML VIAL ONE (07:24)
[2021-07-16] MEDS ORDERED: GLYCOPYRROLATE 0.2 MG/ML 2 ML VIAL ONE (07:24)
[2021-07-16] MEDS ORDERED: MIDAZOLAM 2 MG/2 ML VIAL ONE (07:24)
[2021-07-16] MEDS ORDERED: LIDOCAINE 2%-EPI 1:100,000 20 ML VIAL SQ ONE (08:03)
[2021-07-16] MEDS ORDERED: LIDOCAINE 1%-EPI 1:100,000 20 ML VIAL SQ ONE (08:03)
[2021-07-16 08:34] LABS: Anisocytosis Slight; Basophils % (A) 0 %; Eosinophils # (A) 0.1 k/uL (0-0.7); Eosinophils % (A) 2 %; HGB 11.9 gm/dL (13.0-17.5); Hyperchromasia Marked; Lymphocytes # (A) 0.8 k/uL (1.0-4.8); Lymphocytes % (A) 11 %; MCH 30.7 pg (25.0-35.0); MCHC 37.1 g/dL (31.0-37.0); MCV 82.8 fL (80.0-100.0); Mean Platelet Volume 9.7; Microcytosis Slight; Monocytes # (A) 0.2 k/uL (0-1.0); Monocytes % (A) 4 %; Neutrophils # (A) 5.7 k/uL (1.3-7.7); Neutrophils % (A) 83 %; Platelet Count 142 k/uL (150-450); Poikilocytosis Moderate; RBC 3.86 m/uL (4.30-5.90); RDW 18.5 % (11.5-15.5); WBC 6.9 k/uL (3.8-10.6)
[2021-07-16] MEDS ORDERED: LACTATED RINGERS 1,000 ML IV ONE (08:38)
[2021-07-16 08:41] LABS: ALT 12 U/L (4-49); AST 22 U/L (17-59); African American GFR (CKD) >90 (>60 ml/min/1.73 sqM); Albumin 3.7 g/dL (3.5-5.0); Alkaline Phosphatase 61 U/L (38-126); Anion Gap 10 mmol/L; Blood Urea Nitrogen 19 mg/dL (9-20); Calcium 9.2 mg/dL (8.4-10.2); Carbon Dioxide 26 mmol/L (22-30); Chloride 101 mmol/L (98-107); Glucose 79 mg/dL (74-99); Non-African American GFR(CKD) >90 (>60 ml/min/1.73 sqM); Potassium 4.4 mmol/L (3.5-5.1); Sodium 137 mmol/L (137-145); Total Bilirubin 5.4 mg/dL (0.2-1.3); Total Protein 6.1 g/dL (6.3-8.2)
--- NOTE | 2021-07-16 09:16 | P.OP ---
Date of Procedure: 07/16/21 Description of Procedure: SURGEON: KAMALA BENSON MD PREOPERATIVE DIAGNOSES: 1. Diaphragmatic hiatal hernia 2. Gastroesophageal reflux disease 3. 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 Thrombocytopenia 5. Hereditary spherocytosis 6. Splenomegaly 7. Chronic jaundice 8. Chronic obstructive pulmonary disease 9. Hypertensive heart disease 10. Obesity due to excess calories, BMI 33.2 11. Depressive disorder 12. Obstructive sleep apnea POSTOPERATIVE DIAGNOSES: 1. Diaphragmatic hiatal hernia 2. Gastroesophageal reflux disease 3. 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 Thrombocytopenia 5. Hereditary spherocytosis 6. Splenomegaly 7. Chronic jaundice 8. Chronic obstructive pulmonary disease 9. Hypertensive heart disease 10. Obesity due to excess calories, BMI 33.2 11. Depressive disorder 12. Obstructive sleep apnea 13. Severe intra-abdominal peritoneal adhesions of omentum and bowel to the abdominal wall OPERATION: 1. Robotic-assisted da Clay Xi laparoscopic lysis of adhesions over 1 hour 2. Aborted robotic-assisted da Clay Xi laparoscopic hiatal hernia repair ANESTHESIA: General with local anesthetic. ESTIMATED BLOOD LOSS: 5 mL SPECIMENS REMOVED: None COMPLICATIONS: None. FINDINGS: 1. Severe intra-abdominal adhesions, omentum to the abdominal wall including colon to the abdominal wall involving the entire upper abdomen a midline requiring abandonment of hiatal hernia repair 2. Severe splenomegaly INDICATIONS: The patient is a 70-year-old male who presents with epigastric abdominal pain, gastroesophageal reflux disease poorly controlled despite medications and a symptomatic diaphragmatic hiatal hernia. He completed an esophageal manometry confirming hiatal hernia. Given the severity of his symptoms, he had elected for surgical intervention. Benefits and risks including bleeding, infection, recurrence, dysphagia, injury to the lung, need for further surgery was described at length. Informed consent was obtained. DESCRIPTION: The patient was brought into the operating room and placed in supine position. Preoperatively she had received subcutaneous DVT prophylaxis. After general induction, the abdomen was prepped and draped in standard sterile fashion. The patient had previously voided prior to coming to the operating room. Ioban draping was placed along the abdomen. A timeout protocol was confirmed with the surgical team, for which the patient's name, procedure to be performed including DVT prophylaxis with bilateral SCDs, and preoperative antibiotics were also confirmed. A robotic da Clay Xi system was prepped and primed. At 12 cm from the xiphoid to just below the umbilicus, proposed port sites were marked with indelible marker along the left axillary line, left mid-clavicular line with each ports were marked 10 cm from each other. A 5 mm 0 degrees laparoscopic trocar entry was performed along the left upper quadrant. The abdomen was insufflated to 15 mmHg pressure was tolerated well. Diagnostic laparoscopy demonstrated severe intra-abdominal adhesions involving the upper abdomen including midline prohibiting placement of trochars for hiatal hernia repair. Upon this finding, hiatal hernia repair was abandoned for extensive lysis of adhesions. No injury to bowel, viscera, or mesentery was identified upon entry. The liver surface was unremarkable. No injury had occurred to the small bowel or viscera. Next, one 8 mm robotic port was placed along the right lower abdomen. An 8-mm port was were placed along the left lower abdomen. The camera 8-mm port was placed below the umbilicus. Please note that the ports were placed at least 20 cm away from the target anatomy. Care was taken to check that each robotic arm were safely away from collision with the bed or the patient. The robot was docked along the right side of the patient. Using a grasper for arm 3, a grasper for arm 2, including vessel sealer for arm 1, the robotic system was docked and primed as described. Instruments were interchanged by the registered nurse first assistant . I had sat at the console. Extensive lysis of adhesions was performed using Vessel sealer including blunt dissection to free the greater omentum from the abdominal wall involving the lower abdomen, midline, bilateral upper abdomen. The transverse colon including ascending colon was adhered to the abdominal wall and carefully dissected free with blunt dissection. Extensive lysis of adhesions over 1 hour was performed. Endoscopic imaging upon completion was obtained. The robot was undocked from the patient. I re-scrubbed into the case. All instruments and pneumoperitoneum were evacuated from the abdominal cavity. Incisions were reapproximated using 4-0 Monocryl in an interrupted subcuticular fashion. Liquid glue was applied to the skin. Local anesthetic was infiltrated in all wounds for postop analgesia. Multiple intra-abdominal films were obtained. At the end of the procedure, needle, sponge, and instrument count was verified correct by the medical surgical tech. The patient had tolerated the procedure well and was taken to the postanesthesia unit in stable condition. Plan - Discharge Summary Discharge Rx Participant: Yes New Discharge Prescriptions: New Acetaminophen Tab [Tylenol Tab] 1,000 mg PO Q6HR PRN #30 tablet PRN Reason: Pain Ibuprofen [Motrin] 600 mg PO Q8HR PRN #30 tab PRN Reason: Pain Simethicone [Gas-X] 125 mg PO AC-TID PRN #20 cap PRN Reason: Pain Continue metFORMIN HCL [Glucophage] 1,000 mg PO BID Montelukast [Singulair] 10 mg PO DAILY Folic Acid 1 mg PO DAILY Insulin Glargine [Lantus Vial] 35 unit SQ BID Sertraline [Zoloft] 100 mg PO DAILY Ramipril [Altace] 10 mg PO DAILY Amitriptyline HCl [Elavil] 10 mg PO BID amLODIPine [Norvasc] 5 mg PO DAILY #10 tab Hydrochlorothiazide [hydroCHLOROthiazide] 12.5 mg PO DAILY Omeprazole 40 mg PO DAILY Albuterol Inhaler [Ventolin Hfa Inhaler] 2 puff INHALATION DIRECTED PRN PRN Reason: Shortness Of Breath Dulaglutide [Trulicity] 3 mg SQ Discharge Medication List Folic Acid 1 mg PO DAILY 01/26/18 [History] Montelukast [Singulair] 10 mg PO DAILY 01/26/18 [History] metFORMIN HCL [Glucophage] 1,000 mg PO BID 01/26/18 [History] Insulin Glargine [Lantus Vial] 35 unit SQ BID 08/24/18 [History] Sertraline [Zoloft] 100 mg PO DAILY 08/24/18 [History] Amitriptyline HCl [Elavil] 10 mg PO BID 11/17/20 [History] Ramipril [Altace] 10 mg PO DAILY 11/17/20 [History] amLODIPine [Norvasc] 5 mg PO DAILY #10 tab 11/19/20 [Rx] Albuterol Inhaler [Ventolin Hfa Inhaler] 2 puff INHALATION DIRECTED PRN 04/19/21 [History] Hydrochlorothiazide [hydroCHLOROthiazide] 12.5 mg PO DAILY 04/19/21 [History] Omeprazole 40 mg PO DAILY 04/19/21 [History] Dulaglutide [Trulicity] 3 mg SQ TU 07/12/21 [History] Acetaminophen Tab [Tylenol Tab] 1,000 mg PO Q6HR PRN #30 tablet 07/16/21 [Rx] Ibuprofen [Motrin] 600 mg PO Q8HR PRN #30 tab 07/16/21 [Rx] Simethicone [Gas-X] 125 mg PO AC-TID PRN #20 cap 07/16/21 [Rx] Follow up Appointment(s)/Referral(s): Kamala Benson MD [STAFF PHYSICIAN] - 07/22/21 Patient Instructions/Handouts: Lysis of Abdominal Adhesions (IP), *[facility] - Managing Your Pain After Surgery Without Opioids Activity/Diet/Wound Care/Special Instructions: Using antibacterial soap. No lifting over 10 pounds 2 weeks, July 30February shower. No bathtub soaks for 2 weeks, July 30 Use ice along incisions for today to prevent swelling. Take tylenol, aleve/ibuprofen, simethicone scheduled for 3 days for best pain relief Discharge Disposition: HOME SELF-CARE
[2021-07-16 09:33] VITALS: TEMP 97.1
[2021-07-16 10:27] LABS: Glucose,Whole Blood 142 mg/dL (75-99)
[2021-07-16 11:23] LABS: Glucose,Whole Blood 123 mg/dL (75-99)
[2021-07-16 11:42] VITALS: BP 100/64; PULSE 72; RESP 16
== END 2021-07-16 12:09 | disposition home or self-care (01) ==
LOC: OR 05:55
PROVIDERS: ATTEND Surgery Plastic and Reconstructive Surgery
DX: K44.9 Diaphragmatic hernia without obstruction or gangrene (principal); K66.0 Peritoneal adhesions (postprocedural) (postinfection); K21.9 Gastro-esophageal reflux disease without esophagitis; E11.40 Type 2 diabetes mellitus with diabetic neuropathy, unspecified; D69.6 Thrombocytopenia, unspecified; D58.0 Hereditary spherocytosis; J44.9 Chronic obstructive pulmonary disease, unspecified; I11.9 Hypertensive heart disease without heart failure; E66.09 Other obesity due to excess calories; F32.9 Major depressive disorder, single episode, unspecified; G47.33 Obstructive sleep apnea (adult) (pediatric); Z68.33 Body mass index [BMI] 33.0-33.9, adult; Z79.4 Long term (current) use of insulin; Z79.899 Other long term (current) drug therapy; Z80.1 Family history of malignant neoplasm of trachea, bronchus and lung; Z80.3 Family history of malignant neoplasm of breast; Z87.891 Personal history of nicotine dependence; Z90.49 Acquired absence of other specified parts of digestive tract; Z96.653 Presence of artificial knee joint, bilateral
CPT/HCPCS: 43281; 80053; 85025; J2250; J1100; J2710; J0690; J2405; J2001; J3010; J2370; J0330; C9113; J1170; J1644

== ENCOUNTER 2023-09-09 12:22 | Emergency (ER) | payer MEDICARE ==
[2023-09-09 12:36] VITALS: RESP 16
[2023-09-09] MEDS ORDERED: SODIUM CHLORIDE 0.9% 1,000 ML IV STA (12:36)
--- NOTE | 2023-09-09 12:42 | ED ---
General Adult HPI - General Chief complaint: Recheck/Abnormal Lab/Rx Stated complaint: Hyperglycemia Time Seen by Provider: 09/09/23 12:27 Source: patient, RN notes reviewed Mode of arrival: ambulatory Limitations: no limitations - History of Present Illness Initial comments: Patient is a pleasant 72-year-old male presenting to emergency Department with concern for hyperglycemia. Patient did have back injections yesterday. Dr. Ospina. Patient states his pain. Fine however blood sugar has been running high since then. Blood sugar prior to arrival was 350. Last oral intake was around 2 hours ago. Patient does take insulin for diabetic control. Mild polydipsia - Related Data Home Medications Medication Instructions Recorded Confirmed Folic Acid 1 mg PO DAILY 01/26/18 07/12/21 Montelukast [Singulair] 10 mg PO DAILY 01/26/18 07/12/21 metFORMIN HCL [Glucophage] 1,000 mg PO BID 01/26/18 07/12/21 Insulin Glargine [Lantus Vial] 35 unit SQ BID 08/24/18 07/12/21 Sertraline [Zoloft] 100 mg PO DAILY 08/24/18 07/12/21 Amitriptyline HCl [Elavil] 10 mg PO BID 11/17/20 07/12/21 ramipriL [Altace] 10 mg PO DAILY 11/17/20 07/12/21 Albuterol Inhaler [Ventolin Hfa 2 puff INHALATION DIRECTED PRN 04/19/21 07/12/21 Inhaler] Omeprazole 40 mg PO DAILY 04/19/21 07/12/21 hydroCHLOROthiazide 12.5 mg PO DAILY 04/19/21 07/12/21 Dulaglutide [Trulicity] 3 mg SQ TU 07/12/21 07/12/21 Previous Rx's Medication Instructions Recorded amLODIPine [Norvasc] 5 mg PO DAILY #10 tab 11/19/20 Acetaminophen Tab [Tylenol Tab] 1,000 mg PO Q6HR PRN #30 tablet 07/16/21 Ibuprofen [Motrin] 600 mg PO Q8HR PRN #30 tab 07/16/21 Simethicone [Gas-X] 125 mg PO AC-TID PRN #20 cap 07/16/21 Allergies Allergy/AdvReac Type Severity Reaction Status Date / Time No Known Allergies Allergy Verified 09/09/23 12:23 Review of Systems ROS Statement: Those systems with pertinent positive or pertinent negative responses have been documented in the HPI. ROS Other: All systems not noted in ROS Statement are negative. Constitutional: Denies: fever Eyes: Denies: eye pain ENT: Denies: ear pain Respiratory: Denies: cough, dyspnea Cardiovascular: Denies: palpitations Endocrine: Reports: polydipsia Gastrointestinal: Denies: abdominal pain Genitourinary: Denies: dysuria Musculoskeletal: Reports: as per HPI Past Medical History Past Medical History: Asthma, Blood Disorder, Diabetes Mellitus, GERD/Reflux, Hearing Disorder / Deafness, Hypertension, Sleep Apnea/CPAP/BIPAP Additional Past Medical History / Comment(s): spherocytosis., neuropathy erick feet, asbestosis, hiatal hernia, dry skin, anemia, History of Any Multi-Drug Resistant Organisms: None Reported Past Surgical History: Cholecystectomy, Ear Surgery, Joint Replacement, Tonsil lectomy Additional Past Surgical History / Comment(s): sinus surgery x2 , h emorrhoidectomy, colonoscopy, multiple tubes in both ears, erick knee replacement, erick knee arthroscopy Past Anesthesia/Blood Transfusion Reactions: No Reported Reaction Past Psychological History: Anxiety, Depression Smoking Status: Former smoker - Past Family History Mother Family Medical History: No Reported History Father Family Medical History: Cancer Additional Family Medical History / Comment(s): bone and lung cancer Sister(s) Family Medical History: Cancer Additional Family Medical History / Comment(s): breast cancer General Exam Limitations: no limitations General appearance: alert, in no apparent distress Head exam: Present: normocephalic Eye exam: Present: normal appearance Neck exam: Present: normal inspection Respiratory exam: Present: normal lung sounds bilaterally Cardiovascular Exam: Present: regular rate, normal rhythm, systolic murmur GI/Abdominal exam: Present: soft. Absent: tenderness Extremities exam: Present: normal inspection. Absent: pedal edema, calf tenderness Neurological exam: Present: alert Psychiatric exam: Present: normal affect, normal mood Skin exam: Present: normal color Course Vital Signs 09/09/23 12:23 Temperature 97.9 F Pulse Rate 76 Respiratory 16 Rate Blood Pressure 176/79 O2 Sat by Pulse 99 Oximetry EKG Findings - EKG Results: EKG: interpreted by ERMD, sinus rhythm, normal axis, normal QRS, normal ST/T Medical Decision Making - Medical Decision Making Was pt. sent in by a medical professional or institution ([facility], [facility], urgent care, hospital, or assisted...) When possible be specific @ -Patient spoke to his doctor and was advised come to emergency department secondary to hyperglycemia Did you speak to anyone other than the patient for history (EMS, parent, family, police, friend...)? What history was obtained from this source @ -No Did you review nursing and triage notes (agree or disagree)? Why? @ -I reviewed and agree with nursing and triage notes Were old charts reviewed (outside hosp., previous admission, EMS record, old EKG, old radiological studies, urgent care reports/EKG's, assisted records)? Report findings @ - Differential Diagnosis (chest pain, altered mental status, abdominal pain women, abdominal pain men, vaginal bleeding, weakness, fever, dyspnea, syncope, headache, dizziness, GI bleed, back pain, seizure, CVA, palpatations, mental health, musculoskeletal)? @ -Differential weakness EKG interpreted by me (3pts min.). @ -As above X-rays interpreted by me (1pt min.). @ - CT interpreted by me (1pt min.). @ -None done U/S interpreted by me (1pt. min.). @ -None done What testing was considered but not performed or refused? (CT, X-rays, U/S, labs)? Why? @ -None What meds were considered but not given or refused? Why? @ -None Did you discuss the management of the patient with other professionals (professionals i.e. [facility], [facility], lab, RT, psych nurse, clinical social worker, berry planter, teacher, supply officer, case liner)? Give summary @ - Was smoking cessation discussed for >3mins.? @ -No Was critical care preformed (if so, how long)? @ -No Were there social determinants of health that impacted care today? How? (Homelessness, low income, unemployed, alcoholism, drug addiction, transportation, low edu. Level, literacy, decrease access to med. care, [place] [facility], rehab)? @ -No Was there de-escalation of care discussed even if they declined (Discuss DNR or withdrawal of care, Hospice)? DNR status @ -No What co-morbidities impacted this encounter? (DM, HTN, Smoking, COPD, CAD, Cancer, CVA, ARF, Chemo, Hep., AIDS, mental health diagnosis, sleep apnea, morbid obesity)? @ -None Was patient admitted / discharged? Hospital course, mention meds given and route, prescriptions, significant lab abnormalities, going to OR and other pertinent info. @ -Blood sugar improved to 250. Patient will be provided further fluids and insulin prior to discharge. Patient recommended close follow-up with primary care physician beginning the week and to return for worsening symptoms. Undiagnosed new problem with uncertain prognosis? @ -No Drug Therapy requiring intensive monitoring for toxicity (Heparin, Nitro, Insulin, Cardizem)? @ -No Were any procedures done? @ -No Diagnosis/symptom? @ -Hyperglycemia Acute, or Chronic, or Acute on Chronic? @ -Acute Uncomplicated (without systemic symptoms) or Complicated (systemic symptoms)? @ -default Side effects of treatment? @ -No Exacerbation, Progression, or Severe Exacerbation? @ -No Poses a threat to life or bodily function? How? (Chest pain, [place], [place], pneumonia, PE, COPD, DKA, ARF, appy, cholecystitis, CVA, Diverticulitis, Homicidal, Suicidal, threat to staff... and all critical care pts) @ -No - Lab Data Result diagrams: 09/09/23 12:57 09/09/23 12:57 Lab Results 09/09/23 09/09/23 09/09/23 Range/Units 12:57 12:57 13:08 WBC 13.1 H (3.8-10.6) k/uL RBC 4.03 L (4.30-5.90) m/uL Hgb 12.5 L (13.0-17.5) gm/dL Hct 33.6 L (39.0-53.0) % MCV 83.5 (80.0-100.0) fL MCH 31.0 (25.0-35.0) pg MCHC 37.1 H (31.0-37.0) g/dL RDW 18.3 H (11.5-15.5) % Plt Count 136 L (150-450) k/uL MPV 10.1 Neutrophils % 86 % Lymphocytes % 7 % Monocytes % 6 % Eosinophils % 1 % Basophils % 0 % Neutrophils # 11.2 H (1.3-7.7) k/uL Lymphocytes # 0.9 L (1.0-4.8) k/uL Monocytes # 0.8 (0-1.0) k/uL Eosinophils # 0.1 (0-0.7) k/uL Basophils # 0.0 (0-0.2) k/uL Hyperchromasia Moderate Poikilocytosis Moderate Anisocytosis Slight Microcytosis Slight Sodium 135 L (137-145) mmol/L Potassium 3.5 (3.5-5.1) mmol/L Chloride 94 L (98-107) mmol/L Carbon Dioxide 27 (22-30) mmol/L Anion Gap 14 mmol/L BUN 31 H (9-20) mg/dL Creatinine 0.87 (0.66-1.25) mg/dL Est GFR (CKD-EPI)AfAm >90 (>60 ml/min/1.73 sqM) Est GFR (CKD-EPI)NonAf 86 (>60 ml/min/1.73 sqM) Glucose 356 H (74-99) mg/dL POC Glucose (mg/dL) 378 H (70-110) mg/dL POC Glu Senior Advisory ID Amanda Gilmore T Calcium 9.5 (8.4-10.2) mg/dL Total Bilirubin 5.8 H (0.2-1.3) mg/dL AST 23 (17-59) U/L ALT 16 (4-49) U/L Alkaline Phosphatase 63 (38-126) U/L Total Protein 7.0 (6.3-8.2) g/dL Albumin 4.6 (3.5-5.0) g/dL Acetone, Qual Negative (Negative) 09/09/23 Range/Units 14:29 WBC (3.8-10.6) k/uL RBC (4.30-5.90) m/uL Hgb (13.0-17.5) gm/dL Hct (39.0-53.0) % MCV (80.0-100.0) fL MCH (25.0-35.0) pg MCHC (31.0-37.0) g/dL RDW (11.5-15.5) % Plt Count (150-450) k/uL MPV Neutrophils % % Lymphocytes % % Monocytes % % Eosinophils % % Basophils % % Neutrophils # (1.3-7.7) k/uL Lymphocytes # (1.0-4.8) k/uL Monocytes # (0-1.0) k/uL Eosinophils # (0-0.7) k/uL Basophils # (0-0.2) k/uL Hyperchromasia Poikilocytosis Anisocytosis Microcytosis Sodium (137-145) mmol/L Potassium (3.5-5.1) mmol/L Chloride (98-107) mmol/L Carbon Dioxide (22-30) mmol/L Anion Gap mmol/L BUN (9-20) mg/dL Creatinine (0.66-1.25) mg/dL Est GFR (CKD-EPI)AfAm (>60 ml/min/1.73 sqM) Est GFR (CKD-EPI)NonAf (>60 ml/min/1.73 sqM) Glucose (74-99) mg/dL POC Glucose (mg/dL) 249 H (70-110) mg/dL POC Glu Senior Advisory ID Ashton, Lali Calcium (8.4-10.2) mg/dL Total Bilirubin (0.2-1.3) mg/dL AST (17-59) U/L ALT (4-49) U/L Alkaline Phosphatase (38-126) U/L Total Protein (6.3-8.2) g/dL Albumin (3.5-5.0) g/dL Acetone, Qual (Negative) Disposition Clinical Impression: Hyperglycemia Disposition: HOME SELF-CARE Condition: Stable Instructions (If sedation given, give patient instructions): Diabetic Hyperglycemia (ED) Additional Instructions: Please do follow-up with primary care physician in the next couple of days for recheck. Return for uncontrolled blood sugar, increased thirst or urination, fevers, weakness, worsening or changing symptoms or other concerns. Is patient prescribed a controlled substance at d/c from ED?: No Referrals: Arsalan Pride MD [Primary Care Provider] - 1-2 days Time of Disposition: 14:57
[2023-09-09 13:10] LABS: Glucose,Whole Blood 378 mg/dL (70-110)
[2023-09-09] MEDS ORDERED: INSULIN REGULAR 100 UNIT/ML VIAL (IV) IV ONE ×2 (13:13→14:49)
[2023-09-09 13:18] LABS: Anisocytosis Slight; Basophils % (A) 0 %; Eosinophils # (A) 0.1 k/uL (0-0.7); Eosinophils % (A) 1 %; HCT 33.6 % (39.0-53.0); HGB 12.5 gm/dL (13.0-17.5); Hyperchromasia Moderate; Lymphocytes # (A) 0.9 k/uL (1.0-4.8); Lymphocytes % (A) 7 %; MCHC 37.1 g/dL (31.0-37.0); MCV 83.5 fL (80.0-100.0); Mean Platelet Volume 10.1; Microcytosis Slight; Monocytes # (A) 0.8 k/uL (0-1.0); Monocytes % (A) 6 %; Neutrophils # (A) 11.2 k/uL (1.3-7.7); Neutrophils % (A) 86 %; Platelet Count 136 k/uL (150-450); Poikilocytosis Moderate; RBC 4.03 m/uL (4.30-5.90); RDW 18.3 % (11.5-15.5); WBC 13.1 k/uL (3.8-10.6)
[2023-09-09 13:38] LABS: ALT 16 U/L (4-49); AST 23 U/L (17-59); African American GFR (CKD) >90 (>60 ml/min/1.73 sqM); Albumin 4.6 g/dL (3.5-5.0); Alkaline Phosphatase 63 U/L (38-126); Anion Gap 14 mmol/L; Blood Urea Nitrogen 31 mg/dL (9-20); Calcium 9.5 mg/dL (8.4-10.2); Carbon Dioxide 27 mmol/L (22-30); Chloride 94 mmol/L (98-107); Glucose 356 mg/dL (74-99); Non-African American GFR(CKD) 86 (>60 ml/min/1.73 sqM); Potassium 3.5 mmol/L (3.5-5.1); Sodium 135 mmol/L (137-145); Total Bilirubin 5.8 mg/dL (0.2-1.3)
[2023-09-09 14:31] LABS: Glucose,Whole Blood 249 mg/dL (70-110)
[2023-09-09] MEDS ORDERED: SODIUM CHLORIDE 0.9% 500 ML 500 ML IV STA (14:49)
[2023-09-09 15:07] VITALS: BP 133/65; PULSE 73; TEMP 97.8
== END 2023-09-09 15:30 | disposition home or self-care (01) ==
LOC: EC 12:22
DX: E11.65 Type 2 diabetes mellitus with hyperglycemia (principal); J45.909 Unspecified asthma, uncomplicated; I10 Essential (primary) hypertension; K21.9 Gastro-esophageal reflux disease without esophagitis; F41.9 Anxiety disorder, unspecified; F32.A Depression, unspecified; Z87.891 Personal history of nicotine dependence; Z79.84 Long term (current) use of oral hypoglycemic drugs; Z79.4 Long term (current) use of insulin; Z79.899 Other long term (current) drug therapy
CPT/HCPCS: 36415; 80053; 82009; 85025; 93005; 96360; 96361; 99285